=== PATIENT | female | born 1980 | race Caucasian/White ===

== ENCOUNTER 2017-07-20 12:24 | Emergency (ER) | payer MEDICAID ==
[2017-07-20 15:11] LABS: ADD MAN DIFF? NO
[2017-07-20 15:14] LABS: WHITE BLOOD COUNT 11.2 10^3/ul (4.8-10.8)
[2017-07-20 15:14] LABS: BASOPHIL # 0.1 10^3/ul (0.0-0.1); BASOPHILS % 0.5 % (0.0-2.0); EOSINOPHILS # 0.1 10^3/ul (0.0-0.5); EOSINOPHILS % 1.2 % (0.0-7.0); HEMATOCRIT 40.2 % (37.0-47.0); HEMOGLOBIN 13.7 g/dl (12.0-16.0); LYMPHOCYTES # 2.4 10^3/ul (0.8-2.9); LYMPHOCYTES % 21.5 % (15.0-51.0); MEAN CORPUSCULAR HEMOGLOBIN 30.6 pg (29.0-33.0); MEAN CORPUSCULAR HGB CONC 34.1 g/dl (32.0-37.0); MEAN CORPUSCULAR VOLUME 89.9 fl (82.0-101.0); MEAN PLATELET VOLUME 8.8 fl (7.4-10.4); MONOCYTE # 0.5 10^3/ul (0.3-0.9); MONOCYTES % 4.1 % (0.0-11.0); NEUTROPHIL # 8.1 10^3/ul (1.6-7.5); NEUTROPHILS % 72.3 % (39.0-77.0); PLATELET COUNT 303 10^3/UL (140-415); RED BLOOD COUNT 4.47 10^6/ul (4.20-5.40); RED CELL DISTRIBUTION WIDTH 13.5 % (11.5-14.5)
[2017-07-20 16:12] LABS: ADD UMIC YES; UR ASCORBIC ACID NEGATIVE (NEGATIVE); UR BACTERIA FEW /HPF (NONE SEEN); UR BILIRUBIN (Dip) NEGATIVE (NEGATIVE); UR BLOOD (Dip) NEGATIVE (NEGATIVE); UR CLARITY SLIGHTLY CLOUDY (CLEAR); UR COLOR YELLOW (YELLOW); UR GLUCOSE (Dip) NEGATIVE (NEGATIVE); UR KETONES (Dip) 1+ mg/dL (NEGATIVE); UR LEUKOCYTE ESTERASE (Dip) 1+ Leu/ul (NEGATIVE); UR NITRITE (Dip) NEGATIVE (NEGATIVE); UR RBC 1 /HPF (0-5); UR SPECIFIC GRAVITY (Dip) 1.013 (1.003-1.030); UR SQUAMOUS EPITHELIAL CELL FEW /HPF (FEW); UR TOTAL PROTEIN (Dip) NEGATIVE (NEGATIVE); UR UROBILINOGEN (Dip) NEGATIVE (NEGATIVE); UR WBC 2 /HPF (0-5)
== END 2017-07-20 17:22 | disposition home or self-care (01) ==
LOC: FTE 12:24
DX: O26.891 Other specified pregnancy related conditions, first trimester (principal); R10.2 Pelvic and perineal pain; Z3A.10 10 weeks gestation of pregnancy
CPT/HCPCS: 36415; 76801; 76817; 81001; 84702; 85025; 86900; 86901; 99284-25

== ENCOUNTER 2017-11-09 12:12 | Outpatient (CLI) | payer MEDICAID | END 2017-11-09 14:15 | disposition home or self-care (01) | LOC: OBT 12:12 → L-D 12:13 → OBT 14:15 | DX: O24.419 Gestational diabetes mellitus in pregnancy, unspecified control (principal); O09.522 Supervision of elderly multigravida, second trimester; Z3A.25 25 weeks gestation of pregnancy | CPT/HCPCS: 76818; 82962; 85460 ==

== ENCOUNTER 2017-12-12 11:51 | Outpatient (CLI) | payer MEDICAID ==
[2017-12-12 13:33] LABS: RUPTURE FETAL MEMBRANES NEGATIVE (NEGATIVE)
== END 2017-12-12 13:50 | disposition home or self-care (01) ==
LOC: OBT 11:51 → L-D 11:52 → OBT 13:50
DX: O36.8130 Decreased fetal movements, third trimester, not applicable or unspecified (principal); O09.523 Supervision of elderly multigravida, third trimester; Z3A.30 30 weeks gestation of pregnancy
CPT/HCPCS: 76818; 84112

== ENCOUNTER 2017-12-15 10:11 | Outpatient (CLI) | payer MEDICAID ==
[2017-12-15] MEDS: LACTATED RINGER'S 1,000 ML IV (11:36)
== END 2017-12-15 13:36 | disposition home or self-care (01) ==
LOC: OBT 10:11 → L-D 10:12 → OBT 13:36
DX: O41.03X0 Oligohydramnios, third trimester, not applicable or unspecified (principal); O09.523 Supervision of elderly multigravida, third trimester; Z3A.30 30 weeks gestation of pregnancy
CPT/HCPCS: 36415; 76816; 76818; 96360

== ENCOUNTER 2018-01-01 08:05 | Outpatient (CLI) | payer MEDICAID ==
[2018-01-01 09:22] LABS: ADD UMIC YES; UR AMORPHOUS CRYSTAL FEW /HPF (NONE SEEN); UR ASCORBIC ACID NEGATIVE (NEGATIVE); UR BACTERIA FEW /HPF (NONE SEEN); UR BILIRUBIN (Dip) NEGATIVE (NEGATIVE); UR BLOOD (Dip) NEGATIVE (NEGATIVE); UR CLARITY SLIGHTLY CLOUDY (CLEAR); UR COLOR YELLOW (YELLOW); UR GLUCOSE (Dip) NEGATIVE (NEGATIVE); UR KETONES (Dip) 1+ mg/dL (NEGATIVE); UR LEUKOCYTE ESTERASE (Dip) 2+ Leu/ul (NEGATIVE); UR NITRITE (Dip) NEGATIVE (NEGATIVE); UR RBC 8 /HPF (0-5); UR SPECIFIC GRAVITY (Dip) 1.009 (1.003-1.030); UR SQUAMOUS EPITHELIAL CELL FEW /HPF (FEW); UR TOTAL PROTEIN (Dip) NEGATIVE (NEGATIVE); UR UROBILINOGEN (Dip) NEGATIVE (NEGATIVE); UR WBC 3 /HPF (0-5)
== END 2018-01-01 12:30 | disposition home or self-care (01) ==
LOC: OBT 08:05 → L-D 08:06 → OBT 12:30
DX: O62.9 Abnormality of forces of labor, unspecified (principal); Z3A.33 33 weeks gestation of pregnancy
CPT/HCPCS: 76817; 76818; 81001

== ENCOUNTER 2018-02-13 19:10 | Inpatient (IN) | payer MEDICAID ==
[2018-02-13] MEDS ORDERED: OXYTOCIN 30 UNITS/LR 500 ML IV (20:00)
[2018-02-13] MEDS ORDERED: CARBOPROST 250 MCG INJ IM (20:00)
[2018-02-13] MEDS ORDERED: MISOPROSTOL 200 MCG TAB PR (20:00)
[2018-02-13] MEDS ORDERED: BUTORPHANOL 2 MG INJ IV (20:00)
[2018-02-13] MEDS ORDERED: METHYLERGONOVINE 0.2 MG INJ IM (20:00)
[2018-02-13] MEDS ORDERED: IBUPROFEN 600 MG TAB PO (20:00)
[2018-02-13] MEDS ORDERED: LIDOCAINE 1% (MPF) 30 ML INJ INJ (20:00)
[2018-02-13 20:48] LABS: ADD MAN DIFF? NO
[2018-02-13 20:51] LABS: WHITE BLOOD COUNT 10.5 10^3/ul (4.8-10.8)
[2018-02-13 20:51] LABS: BASOPHILS % 0.3 % (0.0-2.0); EOSINOPHILS # 0.1 10^3/ul (0.0-0.5); EOSINOPHILS % 0.9 % (0.0-7.0); HEMATOCRIT 40.7 % (37.0-47.0); HEMOGLOBIN 13.7 g/dl (12.0-16.0); LYMPHOCYTES # 1.8 10^3/ul (0.8-2.9); MEAN CORPUSCULAR HEMOGLOBIN 30.4 pg (29.0-33.0); MEAN CORPUSCULAR HGB CONC 33.7 g/dl (32.0-37.0); MEAN CORPUSCULAR VOLUME 90.2 fl (82.0-101.0); MEAN PLATELET VOLUME 9.3 fl (7.4-10.4); MONOCYTE # 0.5 10^3/ul (0.3-0.9); MONOCYTES % 4.7 % (0.0-11.0); NEUTROPHIL # 8.1 10^3/ul (1.6-7.5); NEUTROPHILS % 76.6 % (39.0-77.0); PLATELET COUNT 267 10^3/UL (140-415); RED BLOOD COUNT 4.51 10^6/ul (4.20-5.40); RED CELL DISTRIBUTION WIDTH 14.8 % (11.5-14.5)
[2018-02-13 21:10] LABS: PROTIME 12.2 Sec (11.9-14.9)
[2018-02-13 21:11] LABS: PARTIAL THROMBOPLASTIN TIME 28.6 Sec (25.0-35.0)
[2018-02-13 21:49] LABS: HEPATITIS B SURFACE ANTIGEN NEGATIVE (NEGATIVE)
[2018-02-13] MEDS: LACTATED RINGER'S 1,000 ML IV (22:03)
[2018-02-13 22:28] LABS: ALBUMIN/GLOBULIN RATIO 1.05; ANION GAP 12 (8-16); BILIRUBIN,TOTAL 0.2 mg/dl (0.2-1.3)
[2018-02-13 22:33] LABS: ALANINE AMINOTRANSFERASE 14 IU/L (13-69); ALBUMIN 3.6 g/dl (3.3-4.9); ALKALINE PHOSPHATASE 179 IU/L (42-121); ASPARTATE AMINO TRANSFERASE 17 IU/L (15-46); BILIRUBIN,INDIRECT 0.2 mg/dl (0-1.1); BLOOD UREA NITROGEN 16 mg/dl (7-20); CALCIUM 9.7 mg/dl (8.4-10.2); CARBON DIOXIDE 21 mmol/L (21-31); CHLORIDE 109 mmol/L (97-110); CREATININE 0.53 mg/dl (0.44-1.00); GLUCOSE 107 mg/dl (70-220); POTASSIUM 4.2 mmol/L (3.5-5.1); SODIUM 138 mmol/L (135-144)
[2018-02-13] MEDS: AMPICILLIN 2 GM/NS (PMX) 100 ML IV (22:59)
[2018-02-13] MEDS: LACTATED RINGER'S 1,000 ML IV* (22:59)
[2018-02-13] MEDS ORDERED: FENTAnyl 2MCG/ML-ROPIV 0.2% 100 ML (23:25)
[2018-02-14] MEDS ORDERED: KETOROLAC 30 MG INJ IV (00:30)
[2018-02-14] MEDS ORDERED: FENTAnyl 2MCG/ML-ROPIV 0.2% 100 ML BAG EPI (00:30)
[2018-02-14] MEDS ORDERED: HYDROmorphONE 0.5 MG/0.5 ML SYG IV ×2 (00:30)
[2018-02-14] MEDS ORDERED: NALOXONE (0.4 MG/ML) INJ IV (00:30)
[2018-02-14] MEDS ORDERED: ONDANSETRON 4 MG INJ IV ×2 (00:30→10:30)
[2018-02-14] MEDS ORDERED: ZOLPIDEM 5 MG TAB PO (00:30)
[2018-02-14] MEDS ORDERED: DIPHENHYDRAMINE 50 MG INJ IV (00:30)
[2018-02-14] MEDS ORDERED: AMPICILLIN 1 GM/NS (PMX) 50 ML IV (00:30)
[2018-02-14] MEDS: ACCU-CHEK XX ×2 (00:56→05:00)
[2018-02-14] MEDS: AMPICILLIN 1 GM/NS (PMX) 50 ML IV ×2 (03:04→06:43)
[2018-02-14] MEDS: LACTATED RINGER'S 1,000 ML IV* (06:44)
[2018-02-14] MEDS: OXYTOCIN 30 UNITS/LR 500 ML IV ×3 (08:10→11:00)
[2018-02-14] MEDS ORDERED: OXYCODONE/ASPIRIN (4.88/325) TAB PO ×2 (10:30)
[2018-02-14] MEDS ORDERED: HYDROCODONE/APAP (5/325) TAB PO (10:30)
[2018-02-14] MEDS ORDERED: DIBUCAINE 1% 30 GM OINT PR (10:30)
[2018-02-14] MEDS ORDERED: ACETAMINOPHEN 325 MG TAB PO (10:30)
[2018-02-14] MEDS: BENZOCAINE 20% 56 ML SPRAY TOP (10:57)
[2018-02-14] MEDS: WITCH HAZEL/GLYCERIN PAD PR (10:58)
[2018-02-14] MEDS: LANOLIN 7 GM TUBE TOP (10:58)
[2018-02-14] MEDS: IBUPROFEN 600 MG TAB PO ×2 (11:43→18:06)
[2018-02-14 17:50] LABS: RAPID PLASMA REAGIN NONREACTIVE (NR)
[2018-02-14] MEDS: SENNA/DOCUSATE NA (8.6MG/50MG) TAB PO (21:23)
[2018-02-14] MEDS: HYDROCODONE/APAP (5/325) TAB PO (21:23)
[2018-02-15] MEDS: IBUPROFEN 600 MG TAB PO ×4 (00:51→18:05)
[2018-02-15] MEDS: HYDROCODONE/APAP (5/325) TAB PO (08:44)
[2018-02-15] MEDS: SENNA/DOCUSATE NA (8.6MG/50MG) TAB PO ×2 (08:45→20:46)
[2018-02-15] MEDS: ACCU-CHEK XX ×3 (10:38→20:45)
[2018-02-15] MEDS: WITCH HAZEL/GLYCERIN PAD PR ×2 (12:23→20:53)
[2018-02-15] MEDS: BENZOCAINE 20% 56 ML SPRAY TOP ×2 (12:23→20:53)
[2018-02-16] MEDS: IBUPROFEN 600 MG TAB PO ×3 (01:03→12:03)
[2018-02-16] MEDS: HYDROCODONE/APAP (5/325) TAB PO ×3 (02:54→10:12)
[2018-02-16] MEDS: ACCU-CHEK XX ×3 (07:52→14:22)
[2018-02-16] MEDS: SENNA/DOCUSATE NA (8.6MG/50MG) TAB PO (08:45)
[2018-02-16] MEDS: MEASLES,MUMPS,RUBELLA VACCINE INJ SC* (09:13)
== END 2018-02-16 15:45 | disposition home or self-care (01) | DRG 775 ==
LOC: OBT 19:10 → L-D 02-14 08:19 → PP1 02-14 10:00 → OBT 20:05 → L-D 19:55
PROVIDERS: Obstetrics & Gynecology
PROC: 10E0XZZ Delivery of Products of Conception, External Approach (ICD-10-PCS; principal; 2018-02-14)
DX: O24.425 Gestational diabetes mellitus in childbirth, controlled by oral hypoglycemic drugs (principal); Z68.43 Body mass index [BMI] 50.0-59.9, adult; O69.81X0 Labor and delivery complicated by cord around neck, without compression, not applicable or unspecified; E66.01 Morbid (severe) obesity due to excess calories; O99.214 Obesity complicating childbirth; Z37.0 Single live birth; Z3A.39 39 weeks gestation of pregnancy
CPT/HCPCS: 62319; 76815; 76818; 80053; 82962; 85025; 85610; 85730; 86592; 86850; 86900; 86901; 87340

== ENCOUNTER 2019-02-24 16:05 | Emergency (ER) | payer MEDICAID ==
[2019-02-24] MEDS: DEXAMETHASONE 10 MG/ML 1 ML INJ IM (17:49)
[2019-02-24] MEDS: KETOROLAC 30 MG INJ IM (17:49)
[2019-02-24 17:52] LABS: URINE BLOOD (Dip) POC Negative (NEGATIVE); URINE KETONES (Dip) POC Negative (NEGATIVE); URINE LEUKOCYTE EST (Dip) POC Negative (NEGATIVE); URINE NITRITE (Dip) POC Negative (NEGATIVE); URINE TOTAL PROTEIN POC Negative (NEGATIVE)
[2019-02-24 17:52] LABS: URINE PH (Dip) POC 5.5 (5.0-8.5)
== END 2019-02-24 18:19 | disposition home or self-care (01) ==
LOC: FTE 18:19
DX: M54.5 Low back pain (principal); Z79.84 Long term (current) use of oral hypoglycemic drugs
CPT/HCPCS: 81003; 81025; 96372; 99284-25